=== PATIENT | female | born 1960 | race Caucasian/White ===

== ENCOUNTER 2020-04-21 09:28 | Day surgery (SDC) | payer BC ==
[~2020-04-21 09:28] MED LIST: Lactated Ringers 1,000 ML IV SCH; Lidocaine 1%/Sod Bicarbonate in NS 8.4% 1 ML Syringe IDERM PRN; Sodium Chloride 0.9% 10 ML Syringe FLUSH PRN
--- NOTE | 2020-04-21 10:31 | PCM.PREANE ---
Preanesthetic Assessment - Procedure Proposed Procedure: Screening Colonoscopy - Anesthesia/Transfusion/Family Hx Anesthesia History: Prior Anesthesia Without Reaction Family History of Anesthesia Reaction: No - Review of Systems General: No Symptoms Pulmonary: No Symptoms (History of Pulmonary nodule. ) Cardiovascular: No Symptoms Gastrointestinal: No Symptoms Neurological: Headache (Migraines ), Pre-Existing Deficit (Polymyalgia Rheumatica, steriod use since February, weaning off, currenly at 5mg per day of prednisone. Painful joints and increased sensativity to pain. Managed by her heading maker in [place]. Also had a rash that has since subsided. ) Other: Reports: None - Physical Assessment NPO Status Date: 04/21/20 NPO Status Time: 04:00 (Prep) Vital Signs: Last Vital Signs Temp 36.4 C 04/21/20 09:55 Pulse 73 04/21/20 09:55 Resp 16 04/21/20 09:55 BP 146/60 H 04/21/20 09:55 Pulse Ox 99 04/21/20 09:55 Height: 1.75 m Weight: 68.039 kg ASA Class: 2 Mental Status: Alert & Oriented x3 Airway Class: Mallampati = 2 Dentition: Reports: [place](s) (Multiple and Capped teeth.) Thyro-Mental Finger Breadths: 2 Mouth Opening Finger Breadths: 3 ROM/Head Extension: Full Lungs: Clear to Auscultation, Normal Respiratory Effort Cardiovascular: Regular Rate, Regular Rhythm - Allergies Allergies/Adverse Reactions: Allergies Allergy/AdvReac Type Severity Reaction Status Date / Time No Known Allergies Allergy Verified 04/21/20 10:19 - Acknowledgements Anesthesia Type Planned: MAC Pt an Appropriate Candidate for the Planned Anesthesia: Yes Alternatives and Risks of Anesthesia Discussed w Pt/Guardian: Yes Pt/Guardian Understands and Agrees with Anesthesia Plan: Yes PreAnesthesia Questionnaire HEENT History: Reports: Allergic Rhinitis, Impaired Vision, Other (See Below) Other HEENT History: wears glasses,contacts Cardiovascular History: Reports: Other (See Below) Other Cardiovascular History: chest wall discomfort Respiratory History: Reports: Other (See Below) Other Respiratory History: dpysnea, pulmonary nodule Gastrointestinal History: Reports: Colon Polyp, Irritable Bowel Syndrome Genitourinary History: Reports: None EVENTS MANAGER History: Reports: , Other (See Below) Other OB/BYN History: vaginal atrophy, bacterial vaginosis, HRT therapy, , vaginal irritation Musculoskeletal History: Reports: Arthritis, Other (See Below) Other Musculoskeletal History: arthralgia, myalgia, polymyalgia rheumatica Neurological History: Reports: Migraines Psychiatric History: Reports: None Endocrine/Metabolic History: Reports: None Hematologic History: Reports: Other (See Below) Other Hematologic History: elevated ESR, t-cell lymphoma Immunologic History: Reports: None Oncologic (Cancer) History: Reports: None Dermatologic History: Reports: Other (See Below) Other Dermatologic History: mycosis fungoides - Infectious Disease History Infectious Disease History: Reports: None - Past Surgical History Head Surgeries/Procedures: Reports: None HEENT Surgical History: Reports: Tonsillectomy Cardiovascular Surgical History: Reports: None Respiratory Surgical History: Reports: None GI Surgical History: Reports: Colonoscopy Female Surgical History: Reports: Hysterectomy, Oophorectomy Male Surgical History: Reports: None Endocrine Surgical History: Reports: None Neurological Surgical History: Reports: None Musculoskeletal Surgical History: Reports: None Oncologic Surgical History: Reports: None - SUBSTANCE USE Tobacco Use Status *Q: Never Tobacco User Recreational Drug Use History: No - HOME MEDS Home Medications: Home Meds Cholecalciferol (Vitamin D3) [Vitamin D3] 2,000 unit PO DAILY 04/20/20 [History] Clobetasol [Clobetasol Propionate 0.05% Cream] 1 dose TOP BID 04/20/20 [History] Fluticasone Propionate [Flonase] 1 dose NASBOTH BID 04/20/20 [History] Multivitamin [Daily-Yesy] 1 tab PO DAILY 04/20/20 [History] estradioL [Estrace 0.01% Vaginal Crm] 1 dose VAG ASDIRECTED 04/20/20 [History] predniSONE [Prednisone] 5 mg PO DAILY 04/20/20 [History] - CURRENT (IN HOUSE) MEDS Current Meds: Current Medications Lactated Ringer's (Ringers, Lactated) 1,000 mls @ 125 mls/hr IV ASDIRECTED FAISAL Stop: 04/21/20 23:00 Last Admin: 04/21/20 10:00 Dose: 125 mls/hr Documented by: Lidocaine/Sodium Bicarbonate (Buffered Lidocaine 1% In Ns 8.4%) 0.25 ml IDERM ONETIME PRN PRN Reason: Prior to IV Start Stop: 04/21/20 18:00 Last Admin: 12/15/20 10:00 Dose: 0.25 ml Documented by: Sodium Chloride (Saline Flush) 10 ml FLUSH ASDIRECTED PRN PRN Reason: Keep Vein Open Stop: 04/21/20 18:00
[2020-04-21] MEDS ORDERED: Lidocaine 1% 4 ML ONE (10:43)
[2020-04-21] MEDS ORDERED: Propofol 200 MG/20 ML SDV ONE ×2 (10:43→11:12)
[2020-04-21] MEDS ORDERED: fentaNYL 100 MCG/2 ML SDV ONE (10:43)
--- NOTE | 2020-04-21 11:38 | PCM.PRNOTE ---
- Free Text/Narrative Note: Date: 04/21/2020 Procedure: screening colonoscopy History: 1.5 cm adenoma on scope 5 years ago, family history significant for father with colon cancer Endoscopist: Mic Martin MD Findings: excellent prep. No significant pathology identified. Detailed Report: The patient was taken to the endoscopy suite and placed in left lateral decubitus position. Timeout was performed, monitored anesthesia care initiated. Visual inspection of the anus revealed no gross abnormality. Digital rectal exam was unremarkable. The colonoscope was inserted in the anus and advanced all the way to the cecum. The appendiceal orifice was visualized. The terminal ileum was intubated. The prep was excellent. The scope was slowly withdrawn and mucosal surfaces were carefully inspected. No polyps were identified. A few tiny scattered diverticula were noted in the distal colon. No significant hemorrhoidal disease appreciated on retroflexion of the scope within the rectum. Air was suctioned from the colon prior to withdrawal of the scope. The patient tolerated the procedure well.
--- NOTE | 2020-04-21 11:43 | PCM48HPAN ---
Post Anesthesia Note - EVALUATION WITHIN 48HRS OF ANESTHETIC Vital Signs in Normal Range: Yes Patient Participated in Evaluation: Yes Respiratory Function Stable: Yes Airway Patent: Yes Cardiovascular Function Stable: Yes Hydration Status Stable: Yes Pain Control Satisfactory: Yes Nausea and Vomiting Control Satisfactory: Yes Mental Status Recovered: Yes Vital Signs: Last Vital Signs Temp 36.4 C 04/21/20 09:55 Pulse 73 04/21/20 09:55 Resp 16 04/21/20 09:55 BP 146/60 H 04/21/20 09:55 Pulse Ox 99 04/21/20 09:55
== END 2020-04-21 12:10 | disposition home or self-care (01) ==
LOC: JD.SDS 09:28
PROVIDERS: ATTEND Surgery
DX: Z12.11 Encounter for screening for malignant neoplasm of colon (principal); K57.30 Diverticulosis of large intestine without perforation or abscess without bleeding; Z80.0 Family history of malignant neoplasm of digestive organs; Z98.890 Other specified postprocedural states; Z79.899 Other long term (current) drug therapy; Z86.010 Personal history of colon polyps
CPT/HCPCS: 45378; J2001; J2704; J3010; J7120; 00812

== ENCOUNTER 2025-03-13 06:26 | Day surgery (SDC) | payer MEDICARE, BC ==
[~2025-03-13 06:26] MED LIST changes: -Lactated Ringers 1,000 ML IV SCH; -Lidocaine 1%/Sod Bicarbonate in NS 8.4% 1 ML Syringe IDERM PRN; +Sodium Chloride 0.9% 10 ML Syringe FLUSH SCH
[2025-03-13] MEDS ORDERED: Propofol 200 MG/20 ML SDV ONE ×2 (06:40→07:28)
[2025-03-13] MEDS: Lactated Ringers 1,000 ML IV SCH (06:50)
== END 2025-03-13 09:00 | disposition home or self-care (01) ==
LOC: JD.SDS 06:26
PROVIDERS: ATTEND Surgery
DX: Z12.11 Encounter for screening for malignant neoplasm of colon (principal); D12.0 Benign neoplasm of cecum; D12.2 Benign neoplasm of ascending colon; Z80.0 Family history of malignant neoplasm of digestive organs; Z79.899 Other long term (current) drug therapy; Z86.0100 Personal history of colon polyps, unspecified
CPT/HCPCS: 45384; J2003; J2704; J7120; 00811